=== PATIENT | female | born 1985 | race Caucasian/White ===

== ENCOUNTER 2017-10-21 21:34 | Outpatient (CLI) | payer OTHER | END 2017-10-22 11:20 | disposition home or self-care (01) | LOC: OBS/DEL 21:34 | DX: O46.8X2 Other antepartum hemorrhage, second trimester (principal); Z34.83 Encounter for supervision of other normal pregnancy, third trimester ==

== ENCOUNTER 2017-12-27 11:40 | Inpatient (IN) | payer OTHER ==
[~2017-12-27] VITALS: Ht 162.6 cm; Wt 69.4 kg
[2018-01-07] MEDS ORDERED: PRENATAL DHA200 MG PO (06:24)
== END 2018-01-09 13:53 | disposition home or self-care (01) | DRG 775 ==
LOC: OB/GYN 12-31 13:00 → LDR 01-07 05:27 → SURG-SUITE 01-07 10:47
PROC: 10E0XZZ Delivery of Products of Conception, External Approach (ICD-10-PCS; principal; 2018-01-07)
PROC: 0UQGXZZ Repair Vagina, External Approach (ICD-10-PCS; 2018-01-07)
PROC: 4A1HXCZ Monitoring of Products of Conception, Cardiac Rate, External Approach (ICD-10-PCS; 2018-01-07)
DX: O71.4 Obstetric high vaginal laceration alone (principal); Z3A.38 38 weeks gestation of pregnancy; Z37.0 Single live birth